=== PATIENT | female | born 1995 | race Caucasian/White ===

== ENCOUNTER 2018-10-14 10:23 | Day surgery (SDC) | payer OTHER, SELFPAY ==
[2018-10-12 13:30] VITALS: BP 120/73; PULSE 99; RESP 16; TEMP 36.8; O2SAT 100; BMI 19.0
--- NOTE | 2018-10-12 13:43 | SDCEKG_ITS ---
Test Reason : Blood Pressure : / mmHG Vent. Rate : 094 BPM Atrial Rate : 094 BPM P-R Int : 142 ms QRS Dur : 098 ms QT Int : 318 ms P-R-T Axes : 081 081 -26 degrees QTc Int : 397 ms Normal sinus rhythm Possible Left atrial enlargement Incomplete right bundle branch block Nonspecific T wave abnormality Abnormal ECG Confirmed by CHARLENE IRAHETA, HEATHER ([id number]), graphics editor JENNIFER SON ([id number]) on 10/13/2018 10:08:51 AM Referred By: Edgar Whitehead Confirmed By:HEATHER CHANG MD
[2018-10-12 14:09] LABS: Hematocrit 40.2 % (37-47); Hemoglobin 12.9 g/dL (12.0-15.0); Mean Corp Hgb Conc 32.1 g/dL (32-36); Mean Corpuscular Hgb 31.5 pg (27.0-32.0); Mean Corpuscular Volume 98.3 fL (81-99); Mean Platelet Vol. 10.2 fl (6.2-12.0); Platelet Count 228 K/mm3 (150-450); RBC Distribution Width SD 43.8 fl (35.1-43.9); Red Blood Count 4.09 M/mm3 (4.2-5.4); White Blood Count 7.5 K/mm3 (4.4-11.0)
[2018-10-12 14:12] LABS: International Normalized Ratio 1.1; Prothrombin Time (Protime)PT. 14.2 SECONDS (11.7-14.9)
[2018-10-12 14:13] LABS: Partial Thromboplast Time 28.9 Seconds (24.1-36.2)
[2018-10-12 14:41] LABS: AST(SGOT) 12 U/L (15-37); Alanine Aminotransfer ALT/SGPT 23 U/L (13-56); Albumin, Serum 3.8 g/dL (3.2-5.0); Alkaline Phosphatase 63 U/L (45-117); Anion Gap 5 (5-15); BUN 14 mg/dL (7-18); BUN/Creat Ratio 16.5 RATIO (10-20); Bilirubin, Direct 0.11 mg/dL (0.00-0.30); Calcium,Total 8.6 mg/dL (8.5-10.1); Chloride 106 mmol/L (98-107); Creatinine, Serum 0.85 mg/dL (0.55-1.02); EST Glomerular Filtration Rate 87 mL/min (>60); Est Glom Filt Rate - Afr Amer 105 mL/min (>60); Estimated Creatinine Clearance 93.28 ml/min; Globulin 2.9 g/dL (2.2-4.2); Glucose 85 mg/dL (74-106); Potassium 3.8 mmol/L (3.5-5.1); Protein, Total 6.7 g/dL (6.4-8.2); Sodium Level 140 mmol/L (136-145)
[2018-10-14 10:45] VITALS: BP 106/78; PULSE 97; RESP 14; TEMP 36.6; O2SAT 100; BMI 19.0
[2018-10-14 10:46] LABS: Internal QC Validated? YES +Cl - CLEAR BKGD; Pregnancy, Urine Negative Negative
[2018-10-14] MEDS: Oxymetazoline 0.05% 1 SPRAY SPRAY.BTL 15 SPRAY (13:00)
[2018-10-14] MEDS: Mixture 30 ML Bottle TOPICAL (13:00)
[2018-10-14] MEDS: Neomycin/Bacitracin/Polymyxin Ointment 1 APPLIC (13:00)
--- NOTE | 2018-10-14 13:40 | DCINST_ITS ---
You will use the following diet at home:: No restrictions Discharge Activity: Return to Normal Activity - Head of bed elevation, do not b low nose but may spray saline into nose to sniff and clear three time per day and as desired. Allergies/Adverse Reactions: Allergies esomeprazole [From Nexium] Allergy (Verified 10/12/18 13:11) Rash fructose Adverse Reaction (Severe, Verified 10/12/18 13:11) Unknown Medications to take at Discharge Cholecalciferol (Vitamin D3) [Vitamin D3] 1,000 unit PO DAILY 05/27/16 Duloxetine Hcl [Cymbalta] 30 mg PO BID 05/27/16 Multivitamin [Daily Multiple Vitamin] 1 ea PO DAILY 05/27/16 [place]-3 Fatty Acids/Fish Oil [Fish Oil 1,000 mg Capsule] 1 each PO BID 05/27/16 Pramipexole Di-HCl [Mirapex] 0.125 mg PO QHS 05/27/16 Triamcinolone 0.025% Cream [Kenalog] 1 applic TOPICAL PRN PRN 05/27/16 buPROPion XL [Wellbutrin Xl] 300 mg PO DAILY 05/27/16 Fibrocare 2 cap PO BID 10/12/18 Lansoprazole [Prevacid] 30 mg PO QHS 10/12/18 Polyethylene Glycol 3350 [Miralax] 17 gm PO DAILY PRN 10/12/18 Salt Tabs 5,000 - 7,000 mg PO DAILY 10/12/18 Primary Care Physician: Diana Lee MD [Primary Care Provider] - Test Results: Test results from this visit will be discussed in further detail at your follow- up appointment, if applicable. Please Follow Up With: Edgar Whitehead MD - follow up next Thursday10-23-18, call for appointment time.
[2018-10-14 13:49] VITALS: BP 106/78; BP 125/91; PULSE 109; RESP 16; TEMP 36.5; O2SAT 97
[2018-10-14 14:00] VITALS: BP 106/78; BP 117/80; PULSE 104; RESP 16; O2SAT 100
[2018-10-14 14:15] VITALS: BP 106/78; BP 123/86; PULSE 114; RESP 16; O2SAT 100
[2018-10-14 14:22] VITALS: BP 106/78; PULSE 107; RESP 16; TEMP 36.5; O2SAT 100
--- NOTE | 2018-10-14 14:44 | PCM.OPRPT ---
Report of Operation Date of Procedure: 10/14/18 Pre-Operative Diagnosis: Nasal airway obstruction, secondary to septal deviation and turbinate hypertrophy nasal airway obstruction Post-Operative Diagnosis: Same Surgery/Procedure Performed:: Nasal septoplasty, therapeutic outfracture of inferior turbinates with subsequent submucosal cautery using Renny bipolar probe Description of Surgical Findings:: The patient was transported to the operating room and placed on the OR table in the supine position. After the administration of adequate general endotracheal anesthesia the patient was appropriately positioned eyes were treated and taped closed. A head drape was applied. The nasal cavity was inspected. Afrin spray had been instilled which did bring about some decongestion of the inferior turbinates. It was evident that the anterior aspect of the quadrangular cartilage was quite straight but a huge spur was noted involving the posterior aspect of the septum starting just anterior to the chondro-osseous junction. The deflection carried to the right posteriorly so as to block the right nasal chamber. Cottonoid pledgets soaked in Greg-Synephrine and Xylocaine mixture were placed into the nasal chamber to bring about further vasoconstriction during which time 1% Xylocaine with epinephrine 1-100,000 was used to infiltrate the columellar area of the septum as well as the soft tissues overlying the right septum and the spur region. The inferior turbinates were also injected. Approximately 6 cc were used in total. Pledgets were eventually removed and the nasal cavity reinspected. The overall impression was the same. This was almost complete obstruction of the right nasal chamber due to posterior septal deflection. Turbinates a diminished markedly with the vasoconstrictive medications. With #15 scalpel a left hemitransfixion incision was created in the soft tissues were elevated from the right side of the septum and the subperichondrial and subperiosteal planes using both Coffee and Lenox elevators Just anterior to the chondro-osseous junction and incision was created with the Lenox elevator so that a posterior tunnel could be elevated on the left side as well. This allowed for skeletonization of the entire posterior septum and the inferior aspect where the large spur was located. With double-action scissors and subsequent forceps the deflected area was removed in pieces. As the posterior deflection was quite stellate, the dissection along the surgery resulted in a tear in the mucosal flap. At this not occurred one would have been placed in that region intentionally so as to prevent any hematoma formation between the soft tissues. The entire mucosal surface of the left side of the septum was entirely nontraumatized. After removal of the posterior aspect the septum was quite straight and the airway greatly improved. Each inferior turbinate was then laterally outfractured into the inferior meatus and treated with the Renny bipolar probe so as to accomplish submucosal cautery. The probe was placed into the anterior aspect of the turbinate and current was applied. When blanching occurred the probe was advanced the length of the turbinate accomplishing a submucosal cauterization inferiorly. The posterior tips received additional cautery with benefit of the 0 degree endoscope for visual guidance. The hemitransfixion incision was closed with interrupted suture of 4-0 chromic. Some FloSeal material was applied to the lacerated region of the right posterior septal mucosa. Overall hemostasis was excellent and overall bleeding was almost negligible. It was felt that the FloSeal would help with the healing process and that the Rios airway splint would not cause additional friction and possibly resolved and continued bleeding. Rios airway splints were coated in antibiotic ointment introduced into the nasal chamber and secured anteriorly with a single suture of 3-0 Ethilon. A nasal drip pad was applied and the procedure was terminated. Patient tolerated the procedure well, did not sustain any intraoperative anesthetic or surgical complication, was extubated in the operating room and taken to the PACU where she was noted to be in satisfactory condition. Edgar Whitehead MD Type of Anesthesia:: General - Endotracheal Anesthesiologist: Robert Forrest G[employer]IC[employer] AIDE TEACHER
[2018-10-14] MEDS: Acetaminophen 325 MG Tablet 650 MG PO (14:49)
[2018-10-14 16:28] VITALS: BP 106/78; BP 112/75; PULSE 82; RESP 16; TEMP 37.2; O2SAT 100
--- NOTE | 2018-10-15 12:00 | SEP_PTH ---
PATIENT: RIGOBERTO PARKS LOC: [facility] [place] U#:[id number] AGE/SX: 23/F ROOM: RE10/14/[address]: Edgar Whitehead MD : 1995 BED: DIS: 10/14/2018 SPEC #: [id number] RECD: 10/15/18 14:35 STATUS: NATE CAROLE #: [id number] ANI: 10/15/18 12:[address]: Edgar Whitehead DEPT: SURGICAL PATHOLOGY RECD BY: Nicolas Senior ENTERED: 10/18/18 10:36 SP TYPE: SEPTUM OTHR DR: Dr. Diana Lee MD Tissues: Nasal septum, NOS Procedures: Decalcification bone/plaque Surgery Specimen Level III HEADER OPERATION: Septoplasty, turbinate cautery PRE-OP DIAGNOSIS: Nasal congestion, deviated nasal septum, hypertrophy nasal turbinates TISSUE SUBMITTED: Nasal bone and cartilage MICROSCOPIC DIAGNOSIS Nasal bone and cartilage: Fragments of cartilage and bone, clinically deviated nasal septum. BRIT:nate 10/21/18 MICROSCOPIC DESCRIPTION Slides are reviewed. GROSS DESCRIPTION Received in fixative is one container labeled with the patient's name and designated nasal cartilage and bone. The specimen consists of multiple irregular fragments of light david bone and cartilage that in aggregate measure 3 x 2.5 x 0.2 cm. The specimen is submitted in its entirety in one cassette after decalcification. / AM:nate 10/18/18 TC:5 CPT: 39302, 16825
== END 2018-10-14 16:42 | disposition home or self-care (01) ==
LOC: SDC 10:25 → AC 10:26
PROVIDERS: Anesthesiology; Family Provider Family Medicine; PCP Family Medicine; Referring Provider Otolaryngology Otolaryngology/Facial Plastic Surgery; Visit Provider Otolaryngology Otolaryngology/Facial Plastic Surgery
PROC: (CPT 30520; principal; 2018-10-14 11:45)
DX: J34.2 Deviated nasal septum (principal); J34.3 Hypertrophy of nasal turbinates; I49.8 Other specified cardiac arrhythmias; I73.00 Raynaud's syndrome without gangrene; K21.9 Gastro-esophageal reflux disease without esophagitis; F32.9 Major depressive disorder, single episode, unspecified; F41.9 Anxiety disorder, unspecified; G25.81 Restless legs syndrome; M79.7 Fibromyalgia; F84.5 Asperger's syndrome; Z79.899 Other long term (current) drug therapy
CPT/HCPCS: 30520; 30930; 80048; 80076; 81025; 85027; 85610; 85730; 88304; 88311; 93005; J7120; J2405

== ENCOUNTER → 2019-05-16 11:58 | Outpatient (CLI) | payer OTHER, SELFPAY ==
[2019-05-16 15:42] LABS: Hematocrit 42.8 % (37-47); Hemoglobin 14.1 g/dL (12.0-15.0); Mean Corp Hgb Conc 32.9 g/dL (32-36); Mean Corpuscular Hgb 32.2 pg (27.0-32.0); Mean Corpuscular Volume 97.7 fL (81-99); Mean Platelet Vol. 10.4 fl (6.2-12.0); Platelet Count 277 K/mm3 (150-450); RBC Distribution Width CV 12.3 % (11.6-14.6); RBC Distribution Width SD 44.4 fl (35.1-43.9); Red Blood Count 4.38 M/mm3 (4.2-5.4); White Blood Count 5.6 K/mm3 (4.4-11.0)
[2019-05-16 15:57] LABS: Vitamin B12 871 pg/mL (211-911)
[2019-05-16 16:36] LABS: ALB/GLOB Ratio 1.2 RATIO (0.9-2.4); AST(SGOT) 17 U/L (15-37); Alanine Aminotransfer ALT/SGPT 34 U/L (13-56); Albumin, Serum 4.1 g/dL (3.2-5.0); Alkaline Phosphatase 62 U/L (45-117); Anion Gap 7 (5-15); BUN 15 mg/dL (7-18); BUN/Creat Ratio 16.7 RATIO (10-20); Chloride 105 mmol/L (98-107); EST Glomerular Filtration Rate 81 mL/min (>60); Est Glom Filt Rate - Afr Amer 98 mL/min (>60); Globulin 3.4 g/dL (2.2-4.2); Glucose 61 mg/dL (74-106); Magnesium 2.2 mg/dL (1.6-2.6); Potassium 4.1 mmol/L (3.5-5.1); Protein, Total 7.5 g/dL (6.4-8.2); Sodium Level 140 mmol/L (136-145); Thyroid Stim Hormone (TSH) 1.43 uIU/mL (0.358-3.74)
== END ==
PROVIDERS: PCP Family Medicine; Referring Provider Psychiatry & Neurology Psychiatry; Visit Provider Psychiatry & Neurology Psychiatry
DX: R53.83 Other fatigue (principal); G25.81 Restless legs syndrome
CPT/HCPCS: 36415; 80053; 82306; 82607; 82746; 83735; 84443; 85027

== ENCOUNTER 2019-12-19 11:00 | Outpatient (RCR) | payer MEDICAID, SELFPAY ==
--- NOTE | 2019-11-21 13:07 | HP.PTEVAL ---
Patient's Visit Information RIGOBERTO PARKS is a 24 year old F referred to Physical Therapy by Dr. Carlin Ding MD with a diagnosis of BILATERAL ARM PAIN. Date of Evaluation: 11/21/19 Physical Therapist: Edgar Piña, PT, Cert MDT, OCS - Visit Plan Frequency: 2x /Week Duration: 4 Weeks Plan: PT INTERVENTIONS US/ESTIM/BVP TO ELBOW,POSTURAL EX'S,ELBOW/WRIST AND FOREARM STRENGTHENING.GENTLE STM (MANUAL THERAPY : ELBOW EXTENSORS - Subjective This 24 y/o female presesents to physical therapy with bilateral arm pain. Symptoms worse on left side left elbow to 5th finger. Patient is left hand dominent. Seen DR smart pack 7 days and sleeping MEDS. Today dull pain left 5th dIgit and elbow. Symptoms have been going on for 1 year. Aggravating factors writing ,drawing,lifting at job demands. Pateint has occassiaonal parathesia/tingling. Patient has h/o fibromayagia. Patient meli to sleep. Patient symptoms affects job demnads and housework tasks. Patient symptoms afects QOL. SOCIAL: single. 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 NEURO: c/o parathesia in 5th digit,reflexes 3/3-C5-6-7. JOINT INTERGRITY: hypomoblie. CERVICAL ROM: flexion/extension/lateral flexion,retraction WNL. AROM SHOULDER: WNL exessive motion. ELBOW: hyperextension ,wrist WNL. MMT: shoulder/elbow/wrist 4/5. SANITARY AIDE STRENGTH: 70# dynometer. - Special Tests L Elbow Flexion Test - Cubital Tunnel: Negative L Elbow Tinels - Ulnar n.: Positive L Elbow Valgus Stress Test - MCL Instability: Negative L Elbow Varus Stress Stest - MCL Instability: Negative L Elbow Lat Epiconylitis - as named: Positive - Goals Goal 1:: Patient be I with HEP Goal Time Frame: 4-6 Weeks Goal 2:: Patient to decrease elbow pain by 50% or > to improve function Goal Time Frame: 4-6 Weeks Goal 3:: Patient to improv quick dash by 5 points or > to improve function and QOL. Goal Time Frame: 4-6 Weeks Goal 4:: Patient able to perform ADL'S ,hobbies and job demands with min limitations Goal Time Frame: 4-6 Weeks - Rehabilitation Potential Physical Therapy Diagnosis: Patient has left lateral epicondylitis pain with tenderness elobow and extnesor muscles along with postural deficits with h/o fibromyalgia affects patients condition Rehabilitation Potential: Good - Anticipated Interventions Patient/Client Instruction: Educate patient on: Condition, Plan of Care For the Purpose of:: To decrease pain, To increase ROM, To improve muscle performance and motor function, To improve ability to perform ADL's, To increase tolerance to activity/condition/position, To improve performance and independence with ADL's, To improve ability of physical actions for home/community/work/leisure, To decrease soft tissue restriction, To reduce risk of recurrence, To improve ability to perform tasks related to life management Therapeutic Exercise to Include: Strength training, Postural training, Active ROM Comment: ELBOW/WRIST For the Purpose of:: To decrease pain, To increase ROM, To improve muscle performance and motor function, To improve ability to perform ADL's, To increase tolerance to activity/condition/position, To improve performance and independence with ADL's, To improve ability of physical actions for home/community/work/leisure, To improve health of tissue, To reduce risk of recurrence, To improve ability to perform tasks related to life management Manual Therapy Techniques to Include: Soft tissue mobilization Comment: ELBOW EXTENSORS For the Purpose of:: To improve nutrient delivery to tissue, To increase oxygenation perfusion, To improve health of tissue TENS: Yes IF ES: Yes Cryotherapy (ice pack, ice massage): Yes Thermo therapy (hot pack): Yes Ultrasound (thermal/non thermal): Yes For the Purpose of:: To decrease pain, To increase ROM, To improve nutrient delivery to tissue, To increase oxygenation perfusion, To improve health of tissue Thank you for the opportunity to evaluate your patient. For Medicare and Medicare HMO plans, please review the plan of care and approve it. It will need to be FAXED BACK to us at [phone] for Medicare purposes. For Medicare only, by signing this I certify the plan of care. Please let me know if there are questions or concerns regarding this plan of care. Physician Signature: Date:
--- NOTE | 2019-12-19 11:30 | HP.PTEVAL ---
Patient's Visit Information RIGOBERTO PARKS is a 24 year old F referred to Physical Therapy by Dr. Carlin Ding MD with a diagnosis of BILATERAL ARM PAIN. Date of Evaluation: 11/21/19 Physical Therapist: Edgar Piña PT, Cert MDT, OCS - Visit Plan Frequency: 2x /Week Duration: 4 Weeks Plan: D/C - Subjective This 24 y/o female presesents to physical therapy with bilateral arm pain. Symptoms worse on left side left elbow to 5th finger. Patient is left hand dominent. Seen DR smart pack 7 days and sleeping MEDS. Today dull pain left 5th dIgit and elbow. Symptoms have been going on for 1 year. Aggravating factors writing ,drawing,lifting at job demands. Pateint has occassiaonal parathesia/tingling. Patient has h/o fibromayagia. Patient meli to sleep. Patient symptoms affects job demnads and housework tasks. Patient symptoms afects QOL. SOCIAL: single. 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 NEURO: c/o parathesia in 5th digit,reflexes 3/3-C5-6-7. JOINT INTERGRITY: hypomoblie. CERVICAL ROM: flexion/extension/lateral flexion,retraction WNL. AROM SHOULDER: WNL exessive motion. ELBOW: hyperextension ,wrist WNL. MMT: shoulder/elbow/wrist 4/5. 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 - Special Tests L Elbow Flexion Test - Cubital Tunnel: Negative L Elbow Tinels - Ulnar n.: Positive L Elbow Valgus Stress Test - MCL Instability: Negative L Elbow Varus Stress Stest - MCL Instability: Negative L Elbow Lat Epiconylitis - as named: Positive - Goals Goal 1:: Patient be I with HEP Goal Time Frame: 4-6 Weeks Goal 2:: Patient to decrease elbow pain by 50% or > to improve function Goal Time Frame: 4-6 Weeks Goal 3:: Patient to improv quick dash by 5 points or > to improve function and QOL. Goal Time Frame: 4-6 Weeks Goal 4:: Patient able to perform ADL'S ,hobbies and job demands with min limitations Goal Time Frame: 4-6 Weeks - Rehabilitation Potential Physical Therapy Diagnosis: Patient has left lateral epicondylitis pain with tenderness elobow and extnesor muscles along with postural deficits with h/o fibromyalgia affects patients condition Rehabilitation Potential: Good - Anticipated Interventions Patient/Client Instruction: Educate patient on: Condition, Plan of Care For the Purpose of:: To decrease pain, To increase ROM, To improve muscle performance and motor function, To improve ability to perform ADL's, To increase tolerance to activity/condition/position, To improve performance and independence with ADL's, To improve ability of physical actions for home/community/work/leisure, To decrease soft tissue restriction, To reduce risk of recurrence, To improve ability to perform tasks related to life management Therapeutic Exercise to Include: Strength training, Postural training, Active ROM Comment: ELBOW/WRIST For the Purpose of:: To decrease pain, To increase ROM, To improve muscle performance and motor function, To improve ability to perform ADL's, To increase tolerance to activity/condition/position, To improve performance and independence with ADL's, To improve ability of physical actions for home/community/work/leisure, To improve health of tissue, To reduce risk of recurrence, To improve ability to perform tasks related to life management Manual Therapy Techniques to Include: Soft tissue mobilization Comment: ELBOW EXTENSORS For the Purpose of:: To improve nutrient delivery to tissue, To increase oxygenation perfusion, To improve health of tissue TENS: Yes IF ES: Yes Cryotherapy (ice pack, ice massage): Yes Thermo therapy (hot pack): Yes Ultrasound (thermal/non thermal): Yes For the Purpose of:: To decrease pain, To increase ROM, To improve nutrient delivery to tissue, To increase oxygenation perfusion, To improve health of tissue Thank you for the opportunity to evaluate your patient. For Medicare and Medicare HMO plans, please review the plan of care and approve it. It will need to be FAXED BACK to us at [phone] for Medicare purposes. For Medicare only, by signing this I certify the plan of care. Please let me know if there are questions or concerns regarding this plan of care. Physician Signature: Date:
--- NOTE | 2019-12-21 17:06 | HP.PTDCSUM_ITS ---
It has been my pleasure to treat RIGOBERTO PARKS referred by Dr. Carlin Ding MD, with the diagnosis of BILATERAL ARM PAIN for a total of 7 visit(s). Discharge Date: 12/19/19 Please see the following information for a summary of their discharge status. Subjective: Doing well able to handle on own . Able all ADL'S AND JOB and demands without dropping things Left Elbow Pain Intensity (Out of 10): 3 % Improvement: 80 Objective/Function: POSTURE: WFL. BUE: GROSSY 5/5 WRIST FLEXION/EXTENSION /SUPINATION/PRONATION 4/5. 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 Goal Progress: Goal Met Goal 4:: Patient able to perform ADL'S ,hobbies and job demands with min limitations Goal Progress: Goal Met Plan: D/C Discharge Comments: HEP If there are questions or concerns regarding this patient's physical therapy, please feel free to call me at [phone]. Thank you for the referral of this patient. Sincerely, Edgar Piña PT, Cert MDT, OCS
== END 2019-12-19 19:00 | disposition home or self-care (01) ==
LOC: PT 11:00
PROVIDERS: PCP Family Medicine; Referring Provider Family Medicine; Visit Provider Family Medicine
DX: M79.601 Pain in right arm (principal); M79.602 Pain in left arm
CPT/HCPCS: 97035; 97110; 97161

== ENCOUNTER 2020-02-11 13:37 | Emergency (ER) | payer MEDICAID, SELFPAY ==
[2020-02-11 13:37] VITALS: BP 128/82; PULSE 96; RESP 16; TEMP 36.2; O2SAT 100; BMI 19.5
--- NOTE | 2020-02-11 14:03 | ED.DCSUM_ITS ---
History of Present Illness Chief Complaint: Laceration Informant: Patient Occurred: Today - JPTA Mechanism/Context: Incised - accidentally w/ kitchen knife Context: Sudden Onset Timing: Continuous Quality of Pain: - - sore Location: R index fingertip Current Severity: Moderate Maximum Severity: Moderate Worsened by: palpation Relieved by: leaving alone Associated Symptoms: Negative for: Parasthesia, Weakness, Loss of Funtion Narrative: Patient accidentally cut herself with a kitchen knife. She was trying to open a pouch while preparing lunch. She [id number]. Tetanus Immunization: 5-10 years - Past Medical History (1) Fibromyalgia Status: Chronic Past Medical History - Allergies and Home Meds Allergies/Adverse Reactions: Allergies esomeprazole [From Nexium] Allergy (Verified 02/11/20 13:39) Rash fructose Adverse Reaction (Severe, Verified 02/11/20 13:39) Unknown Primary Care Physician: Diana Lee MD [Primary Care Provider] - Smoking Status: Current every day smoker Review of Systems General: Denies: Chills, Fever, Sweats Musculoskeletal: Reports: Extremity Pain. Denies: Swelling Skin: Reports: Wounds. Denies: Rash Neurological: Denies: Headache, Weakness, Numbness Physical Exam Vital Signs/Narrative: Vital Signs Temp Pulse Resp BP Pulse Ox 02/11/20 13:37 97.2 F L 96 16 128/82 H 100 General: Well nourished, Well developed, - - Well-appearing no distress Head: Normocephalic, Atraumatic Extremeties: Full range of motion right index finger. All tendon function intact. Laceration is distal, at the fingertip. No other injuries. Skin: Normal color, No rash, Trauma - U-shaped 1.5 cm laceration to the right index fingertip. Clean, subcutaneous, oozing blood. No nail involvement or subungual hematoma. Neurological: Alert, Oriented x3, Cranial nerves II-XII grossly intact, Normal Strength, Normal Sensation, Normal Gait Psychological: Normal affect, Normal Mood Diagnostic/Tx/Re-eval - Medical Decision Making Laceration was repaired and cleansed, recommend removal in approximately 1 week since it is distal and not involving any joint or nail. Procedures - Lacerations R index fingertip Length: 1.5 cm Depth: Sub Q Shape: Flap Prep: Sterile Conditions Laceration repair: Irrigated, Lidocaine - 1%, Local - 1cc, and topical LET Number of Sutures/[place]: 3 Suture Information: Ethilon, Simple, 5-0 ED Disposition - Plan for ED Patient: Disposition: Home or Assisted Living Diagnosis: Laceration of right index finger w/o foreign body w/o damage to nail Instructions: ED Laceration, Hand: All Closures Referrals: Diana Lee MD [Primary Care Provider] - 7 Days for suture removal (Or urgent care or ER)
[2020-02-11] MEDS: Lidocaine 1% (20 ml mdv) 20 ML Vial INFILT (14:18)
[2020-02-11] MEDS: Lidocaine/Epi/Tetracaine 50 ML 1 APPLIC TOPICAL (14:18)
== END 2020-02-11 15:32 | disposition home or self-care (01) ==
PROVIDERS: Emergency Provider Emergency Medicine; PCP Family Medicine
DX: S61.210A Laceration without foreign body of right index finger without damage to nail, initial encounter (principal); W26.0XXA Contact with knife, initial encounter; Y93.G1 Activity, food preparation and clean up; Y92.9 Unspecified place or not applicable; Y99.9 Unspecified external cause status; M79.7 Fibromyalgia; F17.200 Nicotine dependence, unspecified, uncomplicated
CPT/HCPCS: 12001; 99284

== ENCOUNTER → 2023-07-10 | Outpatient (CLI) | payer MEDICAID, SELFPAY ==
[2023-07-10 15:26] LABS: Absolute Lymphocyte Count 1.96 X10^3/uL (0.83-4.51); Absolute Neutrophil Count 4.3 X10^3/uL (2.0-7.7); Basophil# 0.05 X10^3/uL; Basophil% 0.7 % (0-1); Eosinophil# 0.15 X10^3/uL; Eosinophils% 2.1 % (0-5); Hematocrit 40.5 % (37-47); Lymphocyte # 1.96 X10^3/ul (0.83-4.51); Lymphocyte % 27.7 % (19-41); Mean Corp Hgb Conc 32.1 g/dL (32-36); Mean Corpuscular Hgb 31.4 pg (27.0-32.0); Mean Corpuscular Volume 97.8 fL (81-99); Mean Platelet Vol. 10.1 fl (6.2-12.0); Monocyte# 0.59 X10^3/uL; Monocyte% 8.3 % (0-10); NRBC Flagged by Analyzer 0 % (0-5); Neutrophil # 4.31 X10^3/uL (2.7-7.7); Neutrophil % 61.1 % (47-70); Platelet Count 282 K/mm3 (150-450); RBC Distribution Width CV 12.4 % (11.6-14.6); RBC Distribution Width SD 44.5 fl (35.1-43.9); Red Blood Count 4.14 M/mm3 (4.2-5.4); White Blood Count 7.1 K/mm3 (4.4-11.0)
[2023-07-10 15:46] LABS: Vitamin B12 635 pg/mL (211-911); Vitamin D,25 Hydroxy 41.6 ng/mL
[2023-07-10 16:22] LABS: ALB/GLOB Ratio 1.2 RATIO (0.9-2.4); AST(SGOT) 10 U/L (15-37); Alanine Aminotransfer ALT/SGPT 27 U/L (13-56); Albumin, Serum 3.7 g/dL (3.2-5.0); Alkaline Phosphatase 46 U/L (45-117); Anion Gap 4 (5-15); BUN 14 mg/dL (7-18); BUN/Creat Ratio 20.4 RATIO (10-20); Calcium,Total 8.8 mg/dL (8.5-10.1); Chloride 104 mmol/L (98-107); Creatinine, Serum 0.69 mg/dL (0.55-1.02); EST Glomerular Filtration Rate 107 mL/min (>60); Est Glom Filt Rate - Afr Amer 129 mL/min (>60); Ferritin 30 ng/mL (8-252); Glucose 93 mg/dL (74-106); Potassium 3.9 mmol/L (3.5-5.1); Protein, Total 6.7 g/dL (6.4-8.2); Sodium Level 137 mmol/L (136-145); T4 Free Direct 0.85 ng/dL (0.76-1.46); Thyroid Stim Hormone (TSH) 1.54 uIU/mL (0.358-3.74)
[2023-07-12 15:07] LABS: Adrenocorticotropic Hormone 15.4 pg/mL (7.2-63.3); Insulin Level 10.2 uIU/mL (2.6-24.9); Transferrin 227 mg/dL (192-364)
== END | disposition home or self-care (01) ==
PROVIDERS: PCP Family Medicine; Referring Provider Family Medicine; Visit Provider Family Medicine
DX: I95.9 Hypotension, unspecified (principal); R53.83 Other fatigue; E16.2 Hypoglycemia, unspecified; E55.9 Vitamin D deficiency, unspecified; E87.1 Hypo-osmolality and hyponatremia; R63.4 Abnormal weight loss
CPT/HCPCS: 80053; 82024; 82306; 82533; 82607; 82728; 82746; 83525; 84439; 84443; 84466; 85025

== ENCOUNTER → 2024-07-14 | Outpatient (CLI) | payer MEDICAID, SELFPAY ==
[2024-07-14 15:10] LABS: Absolute Lymphocyte Count 2.01 X10^3/uL (0.83-4.51); Basophil# 0.05 X10^3/uL; Basophil% 0.7 % (0-1); Eosinophil# 0.24 X10^3/uL; Eosinophils% 3.4 % (0-5); Hematocrit 42.7 % (37-47); Hemoglobin 14.3 g/dL (12.0-15.0); Lymphocyte # 2.01 X10^3/ul (0.83-4.51); Lymphocyte % 28.4 % (19-41); Mean Corp Hgb Conc 33.5 g/dL (32-36); Mean Corpuscular Hgb 32.1 pg (27.0-32.0); Mean Corpuscular Volume 95.7 fL (81-99); Mean Platelet Vol. 10.5 fl (6.2-12.0); Monocyte# 0.72 X10^3/uL; Monocyte% 10.2 % (0-10); NRBC Flagged by Analyzer 0 % (0-5); Neutrophil # 4.04 X10^3/uL (2.7-7.7); Neutrophil % 57.2 % (47-70); Platelet Count 282 K/mm3 (150-450); RBC Distribution Width CV 12.2 % (11.6-14.6); RBC Distribution Width SD 42.8 fl (35.1-43.9); Red Blood Count 4.46 M/mm3 (4.2-5.4); White Blood Count 7.1 K/mm3 (4.4-11.0)
[2024-07-14 15:38] LABS: Hemoglobin A1c 5.1 % (<=5.6)
[2024-07-14 15:41] LABS: Hepatitis B Surface Antibody Nonreactive
[2024-07-14 15:42] LABS: ALB/GLOB Ratio 2.2 RATIO (0.9-2.4); AST(SGOT) 19 U/L (<=31); Alanine Aminotransfer ALT/SGPT 17 U/L (<=34); Albumin, Serum 4.4 g/dL (3.5-5.0); Alkaline Phosphatase 54 U/L (35-104); Anion Gap 10 (5-15); BUN 13 mg/dL (4-19); BUN/Creat Ratio 15.1 RATIO (10-20); Calcium,Total 9.3 mg/dL (7.6-11.0); Carbon Dioxide 26.3 mmol/L (21.0-32.0); Chloride 104 mmol/L (98-108); Cholesterol 148 mg/dL (<=200); Creatinine, Serum 0.85 mg/dL (0.70-1.20); EST Glomerular Filtration Rate 95 (>60); Ferritin 80 ng/mL (22-378); Glucose 59 mg/dL (70-99); High Density Lipoprotein 76 mg/dL; Low Density Lipoprotein Calc. 64 mg/dL; Potassium 4.6 mmol/L (3.3-5.1); Protein, Total 6.4 g/dL (5.9-8.4); Sodium Level 140 mmol/L (133-145); Total Bilirubin 0.29 mg/dL (0.00-1.30); Triglycerides 40 mg/dL; Very Low Density Lipoprotein 8 mg/dL (5-40); Vitamin D,25 Hydroxy 63.3 ng/mL (30-100); cholesterol:hdl ratio screen 1.94
[2024-07-14 16:52] LABS: Iron 128 ug/dL (50-170); Iron Binding Capacity,Total 262 ug/dL (250-450); Iron Binding Capacity,Unsat 134 ug/dL (228-428)
== END | disposition home or self-care (01) ==
LOC: MFPLAB 12:19
PROVIDERS: PCP Family Medicine; Referring Provider Family Medicine; Visit Provider Family Medicine
DX: E87.1 Hypo-osmolality and hyponatremia (principal); E16.2 Hypoglycemia, unspecified; E55.9 Vitamin D deficiency, unspecified; R53.83 Other fatigue
CPT/HCPCS: 36415; 80053; 80061; 82306; 82728; 83036; 83540; 83550; 84443; 85025; 86706

== ENCOUNTER 2024-09-30 10:30 | Outpatient (RCR) | payer MEDICAID, SELFPAY ==
--- NOTE | 2024-07-27 12:16 | HP.PTEVAL_ITS ---
Patient's Visit Information Visit Information Visit Information: RIGOBERTO PARKS is a 28 year old F referred to Physical Therapy by Josefa Duque MD with a diagnosis of BACK PAIN ,ACUTE. Date of Evaluation: 07/27/24 Physical Therapist: Edgar Piña PT, Cert MDT, OCS Visit Plan Frequency: 2x /Week Duration: 4 Weeks Plan: PT INTERVENTIONS THORACIC STRENGTHENING ,POSTURAL EX'S ,CORE STRENGTHENING AND MODALITIES PRN Subjective Subjective: This 28 y/o female presents to physical therapy with thoracic pain. Described ache dull/ pinching. Patient seen Dr on routine visit and c/o mid back pain. Patient had no imaging and provided muscle relaxer. Patient located thoracic pain . Patient has fibromyalgia /POTS/chronic fatigue syndrome. Aggravating factors sitting ,occasionally lifting ,computer work . Alleviating factors rest. Pain can affects sleeping. Coughing/sneezing -. Bowel/bladder- . Patient generalized hypermobility .No prior prior treatment. Patient is not actively exercises . No pain pain management. Patient condition affects QOL and function/ADLS. Patient goals to decrease pain. 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 Pain Bilateral Back: Pain Intensity (Out of 10): 5 Pain Intensity Range: 10 Objective Objective: POSTURE: mild forward posture PALAPTION: unremarkable NEURO: denies paresthesia/tingling OBSERVATION: generalized hypermobility AROM: BUE WNL ,generalized hypermobility MMT: BUE grossly 4/5 CERVICAL ROM: WNL THORACIC ROM: flexion/extension/rotation excessive mobility LUMBAR ROM: WNL excessive mobility Special Tests C/S Radiculapathy - Left Upper limb tension test: Negative C/S Radiculapathy - Right Upper limb tension test: Negative C/S Radiculapathy - Left Spurlings: Negative C/S Radiculapathy - Right Spurlings: Negative Cervical Lying: Retraction - Mechanical Response: No effect Cervical Lying: Retraction - Symptoms During Testing: No effect Cervical Lying: Retraction - Symptoms After Testing: No effect Cervical Lying: Extension - Mechanical Response: No effect Cervical Lying: Extension - Symptoms During Testing: No effect Cervical Lying: Extension - Symptoms After Testing: No effect L/S Slump test left side: Negative L/S Slump test right side: Negative Balance/Special Test Scores Oswestry Low Back Score: 28 Goals Goal 1:: Patient to be I with HEP Goal Time Frame: 4-6 Weeks Goal 2:: Patient to demonstrated 50% improvement with less pain and improved function and job Goal Time Frame: 4-6 Weeks Goal 3:: Patient to improve back oswestry score by 5 points to improve QOL and function Goal Time Frame: 4-6 Weeks Goal 4:: Patient to be able to work 1/2 day with less pain and increase energy Goal Time Frame: 4-6 Weeks Rehabilitation Potential Physical Therapy Diagnosis: This has thoracic pain with positioning increase pain especially job demands and functional weakness of postural muscles along with hypermobility and comorbities influences condition thus benefit from skilled PT Rehabilitation Potential: Good Anticipated Interventions Patient/Client Instruction: Educate patient on: Condition and Plan of Care For the Purpose of:: To decrease pain, To increase ROM, To improve muscle performance and motor function, To improve ability to perform ADL's, To increase tolerance to activity/condition/position, To improve ability of physical actions for home/community/work/leisure, To improve gait and locomotor functions, To increase flexibility/ROM, To improve endurance, To improve balance and To improve tolerance to ADL's Therapeutic Exercise to Include: Strength training, Postural training, Flexibilty training and Dynamic Lumbar Stabilization For the Purpose of:: To decrease pain, To improve muscle performance and motor function, To increase tolerance to activity/condition/position, To improve ability of physical actions for home/community/work/leisure, To improve endurance and To improve tolerance to ADL's TENS: Yes IF ES: Yes Thermo therapy (hot pack): Yes Ultrasound (thermal/non thermal): Yes For the Purpose of:: To decrease pain, To improve nutrient delivery to tissue, To increase oxygenation perfusion and To improve tolerance to ADL's Text: Thank you for the opportunity to evaluate your patient. For Medicare and Medicare HMO plans, please review the plan of care and approve it. It will need to be FAXED BACK to us at [phone] for Medicare purposes. For Medicare only, by signing this I certify the plan of care. Please let me know if there are questions or concerns regarding this plan of care. Physician Signature: Date:
--- NOTE | 2024-09-30 11:03 | HP.PTDCSUM ---
Discharge Summary D/C summary: It has been my pleasure to treat RIGOBERTO PARKS referred by Josefa Duque MD, with the diagnosis of BACK PAIN ,ACUTE for a total of 16 visit(s). Discharge Date: 09/30/24 Please see the following information for a summary of their discharge status. Subjective Subjective: Doing better overall ,less pain Feels less tight in mid back but neck [place] is tight Lifting heavier is easier Pain Bilateral Back: Pain Intensity (Out of 10): 4 Overall Improvement % Improvement: 75 Objective Objective/Function: POSTURE: mild forward posture PALAPTION: unremarkable NEURO: denies paresthesia/tingling OBSERVATION: generalized hypermobility AROM: BUE WNL ,generalized hypermobility MMT: BUE grossly 4/5 CERVICAL ROM: WNL THORACIC ROM: flexion/extension/rotation excessive mobility LUMBAR ROM: WNL excessive mobility Goals Goal 1:: Patient to be I with HEP Goal Progress: Goal Met Goal 2:: Patient to demonstrated 50% improvement with less pain and improved function and job Goal Progress: Goal Met Goal 3:: Patient to improve back oswestry score by 5 points to improve QOL and function Goal Progress: Goal Met Goal 4:: Patient to be able to work 1/2 day with less pain and increase energy Goal Progress: Goal Met Plan Plan: D/C D/C Information Discharge Comments: HEP d/c sentence: If there are questions or concerns regarding this patient's physical therapy, please feel free to call me at [phone]. Thank you for the referral of this patient. Sincerely, Edgar Piña, PT, Cert MDT, OCS Balance/Gait/Functional tests Balance/Special Test Scores Oswestry Low Back Score: 4 Improvement % Improvement: 75
== END 2024-09-30 19:00 | disposition home or self-care (01) ==
LOC: PT 10:30
PROVIDERS: PCP Family Medicine; Referring Provider Family Medicine; Visit Provider Family Medicine
DX: M54.9 Dorsalgia, unspecified (principal)
CPT/HCPCS: 97035; 97110; 97140; 97162; 97530

== ENCOUNTER → 2024-10-24 | Outpatient (CLI) | payer MEDICAID, SELFPAY ==
--- NOTE | 2024-10-24 12:25 | RAD_ITS ---
PROCEDURE: CERV SPINE 4 OR 5 VIEWS 10/24/2024 REASON FOR EXAM: SHOULDER PAIN BILATERAL TECHNIQUE: CERV SPINE 4 OR 5 VIEWS COMPARISON: None. FINDINGS: Normal craniovertebral junction. Normal anterior atlantoaxial articulation. Normal odontoid process. Straightening of the cervical lordosis. Normal vertebral bodies and posterior osseous elements. Normal disc space heights and vertebral endplates. Normal visualized intervertebral neuroforamina. Normal visualized soft tissue structures. RAD/Cerv Spine 4 or 5 Views IMPRESSION: Straightening of the cervical lordosis, probably muscular spasm and pain. Reading [facility]
== END | disposition home or self-care (01) ==
LOC: RAD 12:20
PROVIDERS: PCP Family Medicine; Referring Provider Family Medicine; Visit Provider Family Medicine
DX: M25.511 Pain in right shoulder (principal); M25.512 Pain in left shoulder
CPT/HCPCS: 72050